=== PATIENT | female | born 1990 | race Caucasian/White ===

== ENCOUNTER 2017-11-17 19:08 | Inpatient (IN) | payer MEDICAID, OTHER ==
[~2017-11-17] VITALS: Ht 170.2 cm; Wt 78.8 kg
[~2017-11-17 19:08] MED LIST: ARIP15TA2 PO; LITH300C3 PO; OMEG-12 PO; PROP10TA73 PO; SIMV-259 PO
[2017-11-17 20:35] LABS: BASOPHILS % (AUTO) 0.7 % (0.0-2.0); EOSINOPHILS % (AUTO) 3.8 % (1.0-6.0); HEMATOCRIT 38.8 % (36-46); HEMOGLOBIN 13.2 g/dL (12.0-16.0); LYMPHOCYTES # (AUTO) 2.9 K/uL (1.0-4.8); LYMPHOCYTES % (AUTO) 21.5 % (22.0-44.0); MEAN CORPUSCULAR HEMOGLOBIN 30.5 pg (26.0-34.0); MEAN CORPUSCULAR HGB CONC 34.1 G/dL (31.0-37.0); MEAN CORPUSCULAR VOLUME 90 fL (80-100); MONOCYTES # (AUTO) 0.8 K/uL (0.1-1.0); MONOCYTES % (AUTO) 5.7 % (2.0-9.0); NEUTROPHILS # (AUTO) 9.1 K/uL (1.8-7.7); NEUTROPHILS % (AUTO) 68.3 % (40.0-70.0); PLATELET COUNT (AUTO) 312 K/uL (150-450); RED BLOOD CELL COUNT(AUTO) 4.34 MIL/uL (4.00-5.20); RED CELL DISTRIBUTION WIDTH 12.6 % (11.5-14.5)
[2017-11-17 20:41] LABS: ANION GAP 6 mmol/L (8-16); CARBON DIOXIDE 28 mmol/L (22-29); CHLORIDE 104 mmol/L (98-107); GLOMERULAR FILTR. RATE CALC 53 mL/min (>60); GLUCOSE,RANDOM 99 mg/dL (70-110); SODIUM SERUM 138 mmol/L (136-145); UREA NITROGEN, BLOOD 18 mg/dL (7-18)
[2017-11-17 20:51] LABS: AMPHET/METH SCREEN,URINE NEGATIVE (NEGATIVE); BARBITURATE SCREEN, URINE NEGATIVE (NEGATIVE); BENZODIAZEPINES SCREEN,URINE NEGATIVE (NEGATIVE); CANNABINOID SCREEN,URINE NEGATIVE (NEGATIVE); COCAINE SCREEN,URINE NEGATIVE (NEGATIVE); METHADONE SCREEN, URINE NEGATIVE (NEGATIVE); OPIATE SCREEN,URINE NEGATIVE (NEGATIVE)
[2017-11-17 20:52] LABS: PHENCYCLIDINE SCREEN,URINE NEGATIVE (NEGATIVE)
[2017-11-17 20:54] LABS: ALANINE AMINOTRANSFERASE 28 U/L (12-78); ALBUMIN 3.7 g/dL (3.4-5.0); ALKALINE PHOSPHATASE 76 U/L (46-116); ASPARTATE AMINOTRANSFERASE 21 U/L (15-37); BILIRUBIN,TOTAL 0.5 mg/dL (0.1-1.0); TOTAL PROTEIN, SERUM 7.8 g/dL (6.4-8.2)
[2017-11-17] MEDS ORDERED: LORazepam 1 MG TABLET PO ONE (22:45)
[2017-11-17] MEDS ORDERED: HALOPERIDOL 5 MG TABLET PO PRN (23:30)
[2017-11-18 02:24] LABS: APPEARANCE,URINE CLEAR (CLEAR); BILIRUBIN,URINE NEGATIVE (NEGATIVE); GLUCOSE, URINE (UA) NEGATIVE (NEGATIVE); OCCULT BLOOD,URINE LARGE (NEGATIVE); PROTEIN,URINE NEGATIVE (NEGATIVE)
[2017-11-18 02:25] LABS: KETONES,URINE NEGATIVE (NEGATIVE); LEUKOCYTE ESTERASE ,URINE MODERATE (NEGATIVE); NITRATE,URINE NEGATIVE (NEGATIVE); UROBILINOGEN,URINE 0.2 mg/dL (<=1.0)
[2017-11-18 03:17] LABS: BACTERIA,URINE Few /HPF (None Seen); SQUAMOUS EPITHELIAL CELL,UR Few /LPF (None Seen)
[2017-11-18 03:18] VITALS: BP 140/92
[2017-11-18 07:34] LABS: FREE T4 (FREE THYROXINE) 1.03 ng/dL (0.76-1.46); THYROID STIMULATING HORMONE 1.97 uIU/mL (0.36-3.74)
[2017-11-18 10:22] VITALS: BP 121/77
[2017-11-18] MEDS: SULFAMETHOX/TRIMETH DS 800-160 MG/TABLET PO SCH (16:54)
[2017-11-18 18:35] VITALS: BP 120/97
[2017-11-19 08:53] VITALS: BP 122/79
[2017-11-19] MEDS: SULFAMETHOX/TRIMETH DS 800-160 MG/TABLET PO SCH ×2 (10:38→17:38)
[2017-11-19 16:00] VITALS: BP 121/76
[2017-11-20 00:10] VITALS: BP 119/75
[2017-11-20] MEDS: ZOLPIDEM TARTRATE 10 MG TABLET PO PRN (00:25)
[2017-11-20 08:48] VITALS: BP 101/64
[2017-11-20] MEDS: SULFAMETHOX/TRIMETH DS 800-160 MG/TABLET PO SCH ×2 (08:57→16:33)
[2017-11-20 16:48] VITALS: BP 134/73
[2017-11-21 00:35] VITALS: BP 136/77
[2017-11-21] MEDS: ZOLPIDEM TARTRATE 10 MG TABLET PO PRN (00:35)
[2017-11-21] MEDS: LORazepam 2 MG TABLET PO PRN (02:53)
[2017-11-21 09:12] VITALS: BP 119/56
[2017-11-21] MEDS: SULFAMETHOX/TRIMETH DS 800-160 MG/TABLET PO SCH ×2 (10:06→16:30)
[2017-11-21 18:01] VITALS: BP 117/76
[2017-11-22 08:00] VITALS: BP 126/78
[2017-11-22] MEDS: SULFAMETHOX/TRIMETH DS 800-160 MG/TABLET PO SCH ×2 (08:04→16:33)
[2017-11-22 17:15] VITALS: BP 128/80
[2017-11-22] MEDS ORDERED: ACETAMINOPHEN 500 MG TABLET PO PRN (17:30)
[2017-11-22 19:51] VITALS: BP 118/81
[2017-11-22 21:20] VITALS: BP 118/81
[2017-11-22] MEDS: LORazepam 2 MG TABLET PO PRN (21:26)
[2017-11-23 01:45] VITALS: BP 121/78
[2017-11-23] MEDS: ARIPiprazole 15 MG TABLET PO SCH (09:19)
[2017-11-23] MEDS: LITHIUM CARBONATE 300 MG CAPSULE PO SCH ×2 (09:20→16:10)
[2017-11-23] MEDS: PROPRANOLOL HCL 10 MG TABLET PO SCH ×2 (09:20→16:10)
[2017-11-23] MEDS: SULFAMETHOX/TRIMETH DS 800-160 MG/TABLET PO SCH (09:20)
[2017-11-23 09:30] VITALS: BP 118/63
[2017-11-23 16:10] VITALS: BP 120/67
[2017-11-23] MEDS: ZOLPIDEM TARTRATE 10 MG TABLET PO PRN (23:17)
[2017-11-24] MEDS: PROPRANOLOL HCL 10 MG TABLET PO SCH (08:57)
[2017-11-24] MEDS: LITHIUM CARBONATE 300 MG CAPSULE PO SCH (08:57)
[2017-11-24] MEDS: ARIPiprazole 15 MG TABLET PO SCH (08:57)
[2017-11-24 09:00] VITALS: BP 100/75
== END 2017-11-24 15:05 | disposition home or self-care (01) | DRG 753 ==
LOC: EMS 19:09 → 3EI 11-18 01:04
PROVIDERS: ADMIT Psychiatry & Neurology Psychiatry; ATTEND Psychiatry & Neurology Psychiatry
DX: F31.9 Bipolar disorder, unspecified (principal); R45.851 Suicidal ideations; F25.9 Schizoaffective disorder, unspecified; F41.9 Anxiety disorder, unspecified; N39.0 Urinary tract infection, site not specified; Z88.8 Allergy status to other drugs, medicaments and biological substances; Z79.899 Other long term (current) drug therapy; Z83.3 Family history of diabetes mellitus
CPT/HCPCS: 84439; 84443; 87086; 99285; G0480

== ENCOUNTER 2019-03-28 16:04 | Inpatient (IN) | payer MEDICAID, OTHER ==
[~2019-03-28] VITALS: Ht 170.2 cm; Wt 83.5 kg
[~2019-03-28 16:04] MED LIST changes: -OMEG-12 PO; -SIMV-259 PO
[2019-03-28 17:38] LABS: EOSINOPHILS % (AUTO) 6.4 % (1.0-6.0); HEMOGLOBIN 12.7 g/dL (12.0-16.0); LYMPHOCYTES # (AUTO) 2.3 K/uL (1.0-4.8); LYMPHOCYTES % (AUTO) 26.9 % (22.0-44.0); MEAN CORPUSCULAR HEMOGLOBIN 28.3 pg (26.0-34.0); MEAN CORPUSCULAR HGB CONC 33.3 G/dL (31.0-37.0); MEAN CORPUSCULAR VOLUME 85 fL (80-100); MONOCYTES # (AUTO) 0.5 K/uL (0.1-1.0); MONOCYTES % (AUTO) 6.3 % (2.0-9.0); NEUTROPHILS # (AUTO) 5.1 K/uL (1.8-7.7); NEUTROPHILS % (AUTO) 59.4 % (40.0-70.0); PLATELET COUNT (AUTO) 321 K/uL (150-450); RED BLOOD CELL COUNT(AUTO) 4.48 MIL/uL (4.00-5.20); RED CELL DISTRIBUTION WIDTH 13.9 % (11.5-14.5)
[2019-03-28 17:54] LABS: ANION GAP 7 mmol/L (8-16); CALCIUM, TOTAL 9.5 mg/dL (8.8-10.5); CARBON DIOXIDE 26 mmol/L (22-29); CHLORIDE 106 mmol/L (98-107); CREATININE 1.04 mg/dL (0.60-1.30); GLOMERULAR FILTR. RATE CALC > 60 mL/min (>60); GLUCOSE,RANDOM 107 mg/dL (70-110); POTASSIUM 4.4 mmol/L (3.5-5.1); SODIUM SERUM 139 mmol/L (136-145); UREA NITROGEN, BLOOD 14 mg/dL (7-18)
[2019-03-28 18:00] LABS: ALANINE AMINOTRANSFERASE 25 U/L (12-78); ALBUMIN 3.9 g/dL (3.4-5.0); ALKALINE PHOSPHATASE 80 U/L (46-116); ASPARTATE AMINOTRANSFERASE 19 U/L (15-37); BILIRUBIN,TOTAL 0.5 mg/dL (0.1-1.0); TOTAL PROTEIN, SERUM 7.8 g/dL (6.4-8.2)
[2019-03-28 18:22] LABS: LITHIUM 0.54 mmol/L (0.60-1.20)
[2019-03-28 22:09] LABS: SALICYLATE < 2.8 mg/dL (2.8-20.0)
[2019-03-28 22:30] LABS: ACETAMINOPHEN < 2 mcg/mL (10-30)
[2019-03-28] MEDS ORDERED: LORazepam 2 MG TABLET PO PRN (23:00)
[2019-03-28] MEDS ORDERED: HALOPERIDOL 5 MG TABLET PO PRN (23:00)
[2019-03-29 00:20] LABS: AMPHET/METH SCREEN,URINE NEGATIVE (NEGATIVE); BARBITURATE SCREEN, URINE NEGATIVE (NEGATIVE); BENZODIAZEPINES SCREEN,URINE NEGATIVE (NEGATIVE); CANNABINOID SCREEN,URINE NEGATIVE (NEGATIVE); COCAINE SCREEN,URINE NEGATIVE (NEGATIVE); METHADONE SCREEN, URINE NEGATIVE (NEGATIVE); OPIATE SCREEN,URINE NEGATIVE (NEGATIVE)
[2019-03-29 00:26] LABS: PHENCYCLIDINE SCREEN,URINE NEGATIVE (NEGATIVE)
[2019-03-29 02:10] VITALS: BP 132/82
[2019-03-29] MEDS ORDERED: INFLUENZA VIRUS VACCINE QVS 2019-20 (3YR+)/PF 60 MCG/0.5 ML SYRINGE IM ONE (06:15)
[2019-03-29 08:16] VITALS: BP 106/59
[2019-03-29 08:18] LABS: CHOL/HDL RATIO 5.2 (3.9-5.7)
[2019-03-29] MEDS: PROPRANOLOL HCL 20 MG TABLET PO SCH ×2 (13:00→16:29)
[2019-03-29] MEDS ORDERED: BISACODYL 5 MG EC TABLET PO PRN (13:00)
[2019-03-29] MEDS: ARIPiprazole 10 MG TABLET PO SCH (13:33)
[2019-03-29 16:00] VITALS: BP 123/75
[2019-03-29] MEDS: LITHIUM CARBONATE 600 MG CAPSULE PO SCH (20:18)
[2019-03-29] MEDS: ZOLPIDEM TARTRATE 10 MG TABLET PO PRN (23:06)
[2019-03-30 06:24] VITALS: BP 114/65
[2019-03-30 08:05] VITALS: BP 101/52
[2019-03-30 08:30] VITALS: BP 112/68
[2019-03-30] MEDS: PROPRANOLOL HCL 20 MG TABLET PO SCH ×3 (08:35→16:45)
[2019-03-30] MEDS: ARIPiprazole 10 MG TABLET PO SCH (08:37)
[2019-03-30 13:05] VITALS: BP 110/72
[2019-03-30 16:06] VITALS: BP 112/81
[2019-03-30] MEDS: AMOX TR/POT CLAV 875 MG/125 MG TABLET PO SCH (16:45)
[2019-03-30] MEDS: LITHIUM CARBONATE 600 MG CAPSULE PO SCH (20:17)
[2019-03-31 06:55] VITALS: BP 101/65
[2019-03-31 08:21] VITALS: BP 100/61
[2019-03-31 08:45] VITALS: BP 124/75
[2019-03-31] MEDS: ARIPiprazole 10 MG TABLET PO SCH (08:46)
[2019-03-31] MEDS: AMOX TR/POT CLAV 875 MG/125 MG TABLET PO SCH ×2 (08:46→16:22)
[2019-03-31] MEDS: PROPRANOLOL HCL 20 MG TABLET PO SCH ×3 (08:46→16:22)
[2019-03-31 16:02] VITALS: BP 107/59
[2019-03-31] MEDS: LITHIUM CARBONATE 600 MG CAPSULE PO SCH (20:02)
[2019-04-01 06:33] VITALS: BP 115/70
[2019-04-01 08:03] VITALS: BP 117/66
[2019-04-01] MEDS: AMOX TR/POT CLAV 875 MG/125 MG TABLET PO SCH ×2 (08:29→17:17)
[2019-04-01] MEDS: PROPRANOLOL HCL 20 MG TABLET PO SCH ×3 (08:29→17:17)
[2019-04-01] MEDS: ARIPiprazole 10 MG TABLET PO SCH (08:29)
[2019-04-01 16:07] VITALS: BP 112/73
[2019-04-01] MEDS: LITHIUM CARBONATE 600 MG CAPSULE PO SCH (20:27)
[2019-04-02 06:21] VITALS: BP 104/65
[2019-04-02] MEDS: ARIPiprazole 10 MG TABLET PO SCH (08:06)
[2019-04-02] MEDS: AMOX TR/POT CLAV 875 MG/125 MG TABLET PO SCH ×2 (08:06→16:05)
[2019-04-02] MEDS: PROPRANOLOL HCL 20 MG TABLET PO SCH ×3 (08:06→16:05)
[2019-04-02 08:15] VITALS: BP 114/76
[2019-04-02 08:17] VITALS: BP 114/76
[2019-04-02 16:02] VITALS: BP 116/68
[2019-04-02] MEDS: LITHIUM CARBONATE 600 MG CAPSULE PO SCH (20:25)
[2019-04-02] MEDS: ZOLPIDEM TARTRATE 10 MG TABLET PO PRN (21:06)
[2019-04-03 06:28] VITALS: BP 113/78
[2019-04-03 08:10] VITALS: BP 121/74
[2019-04-03] MEDS: PROPRANOLOL HCL 20 MG TABLET PO SCH ×2 (08:13→12:11)
[2019-04-03] MEDS: ARIPiprazole 10 MG TABLET PO SCH (08:13)
[2019-04-03] MEDS: AMOX TR/POT CLAV 875 MG/125 MG TABLET PO SCH (08:13)
== END 2019-04-03 14:26 | disposition home or self-care (01) | DRG 750 ==
LOC: EMS 16:05 → B3A 23:30
PROVIDERS: ADMIT Psychiatry & Neurology Psychiatry; ATTEND Psychiatry & Neurology Psychiatry
DX: F25.9 Schizoaffective disorder, unspecified (principal); R45.851 Suicidal ideations; E78.5 Hyperlipidemia, unspecified; F31.9 Bipolar disorder, unspecified; K59.00 Constipation, unspecified; F41.9 Anxiety disorder, unspecified; Z83.3 Family history of diabetes mellitus; Z91.5 Personal history of self-harm; Z79.899 Other long term (current) drug therapy; Z88.8 Allergy status to other drugs, medicaments and biological substances
CPT/HCPCS: G0480; G0481

== ENCOUNTER 2020-08-22 16:34 | Inpatient (IN) | payer MEDICAID, OTHER ==
[~2020-08-22] VITALS: Ht 170.2 cm; Wt 85.5 kg
[2020-08-22 18:16] LABS: BASOPHILS % (AUTO) 1.1 % (0.0-2.0); EOSINOPHILS % (AUTO) 3.7 % (1.0-6.0); HEMATOCRIT 39.6 % (36-46); LYMPHOCYTES # (AUTO) 2.3 K/uL (1.0-4.8); LYMPHOCYTES % (AUTO) 24.9 % (22.0-44.0); MEAN CORPUSCULAR HEMOGLOBIN 28.4 pg (26.0-34.0); MEAN CORPUSCULAR HGB CONC 32.8 G/dL (31.0-37.0); MEAN CORPUSCULAR VOLUME 87 fL (80-100); MONOCYTES # (AUTO) 0.5 K/uL (0.1-1.0); MONOCYTES % (AUTO) 5.1 % (2.0-9.0); NEUTROPHILS % (AUTO) 65.2 % (40.0-70.0); PLATELET COUNT (AUTO) 340 K/uL (150-450); RED BLOOD CELL COUNT(AUTO) 4.58 MIL/uL (4.00-5.20); RED CELL DISTRIBUTION WIDTH 14.4 % (11.5-14.5)
[2020-08-22 18:28] LABS: LITHIUM 0.57 mmol/L (0.60-1.20)
[2020-08-22 18:29] LABS: ANION GAP 11 mmol/L (8-16); CALCIUM, TOTAL 9.4 mg/dL (8.8-10.5); CARBON DIOXIDE 23 mmol/L (22-29); CHLORIDE 103 mmol/L (98-107); CREATININE 1.12 mg/dL (0.60-1.30); GLOMERULAR FILTR. RATE CALC 57 mL/min (>60); GLUCOSE,RANDOM 101 mg/dL (70-110); POTASSIUM 3.9 mmol/L (3.5-5.1); SODIUM SERUM 137 mmol/L (136-145); UREA NITROGEN, BLOOD 15 mg/dL (7-18)
[2020-08-22 18:42] LABS: ALANINE AMINOTRANSFERASE 36 U/L (12-78); ALKALINE PHOSPHATASE 70 U/L (46-116); ASPARTATE AMINOTRANSFERASE 23 U/L (15-37); BILIRUBIN,TOTAL 0.7 mg/dL (0.1-1.0); HCG,QUANTITATIVE < 1 mIU/mL (0-6); TOTAL PROTEIN, SERUM 8.1 g/dL (6.4-8.2)
[2020-08-22 19:38] LABS: COVID AG,FIA SOURCE NASOPHARYNGEAL
[2020-08-22] MEDS ORDERED: ZOLPIDEM TARTRATE 10 MG TABLET PO PRN (19:45)
[2020-08-22] MEDS ORDERED: HALOPERIDOL 5 MG TABLET PO PRN (19:45)
[2020-08-23 00:15] VITALS: BP 133/94
[2020-08-23] MEDS: LORazepam 2 MG TABLET PO PRN (00:22)
[2020-08-23 05:54] VITALS: BP 102/63
[2020-08-23 08:57] LABS: CHOL/HDL RATIO 4.9 (3.9-5.7)
[2020-08-23] MEDS ORDERED: LITH600C5 PO (11:49)
[2020-08-23] MEDS ORDERED: PROP20TA18 PO (11:49)
[2020-08-23] MEDS ORDERED: ARIP10TA8 PO (11:49)
[2020-08-23] MEDS: PROPRANOLOL HCL 20 MG TABLET PO SCH ×2 (14:31→18:03)
[2020-08-23] MEDS: LITHIUM CARBONATE 600 MG CAPSULE PO SCH (20:25)
[2020-08-23 20:31] VITALS: BP 120/88
[2020-08-24 09:36] VITALS: BP 116/74
[2020-08-24] MEDS: PROPRANOLOL HCL 20 MG TABLET PO SCH ×3 (10:37→16:25)
[2020-08-24] MEDS: ARIPiprazole 10 MG TABLET PO SCH (10:38)
[2020-08-24 16:00] VITALS: BP 121/75
[2020-08-24] MEDS: LITHIUM CARBONATE 600 MG CAPSULE PO SCH (20:22)
[2020-08-25 08:00] VITALS: BP 122/76
[2020-08-25] MEDS: ARIPiprazole 10 MG TABLET PO SCH (09:29)
[2020-08-25] MEDS: PROPRANOLOL HCL 20 MG TABLET PO SCH ×3 (09:30→17:03)
[2020-08-25 16:12] VITALS: BP 108/84
[2020-08-25 16:33] VITALS: BP 120/69
[2020-08-25] MEDS: LITHIUM CARBONATE 600 MG CAPSULE PO SCH (20:20)
[2020-08-25] MEDS: LORazepam 2 MG TABLET PO PRN (22:14)
[2020-08-26] MEDS: PROPRANOLOL HCL 20 MG TABLET PO SCH ×3 (09:31→16:31)
[2020-08-26] MEDS: ARIPiprazole 10 MG TABLET PO SCH (09:31)
[2020-08-26 09:50] VITALS: BP 113/72
[2020-08-26 17:55] VITALS: BP 123/75
[2020-08-26] MEDS: LITHIUM CARBONATE 600 MG CAPSULE PO SCH (20:41)
[2020-08-27 08:00] VITALS: BP 98/64
[2020-08-27] MEDS: ARIPiprazole 10 MG TABLET PO SCH (08:13)
[2020-08-27] MEDS: PROPRANOLOL HCL 20 MG TABLET PO SCH ×3 (08:13→16:52)
[2020-08-27 16:00] VITALS: BP 106/70
[2020-08-27] MEDS: LITHIUM CARBONATE 600 MG CAPSULE PO SCH (20:34)
[2020-08-28] MEDS: PROPRANOLOL HCL 20 MG TABLET PO SCH ×2 (08:10→13:03)
[2020-08-28] MEDS: ARIPiprazole 10 MG TABLET PO SCH (08:36)
[2020-08-28 08:48] VITALS: BP 120/77
== END 2020-08-28 14:10 | disposition home or self-care (01) | DRG 753 ==
LOC: EMS 16:34 → 3EI 21:50
PROVIDERS: ADMIT Psychiatry & Neurology Psychiatry; ATTEND Psychiatry & Neurology Psychiatry
DX: F31.9 Bipolar disorder, unspecified (principal); R45.851 Suicidal ideations; E78.5 Hyperlipidemia, unspecified; Z20.822 Contact with and (suspected) exposure to COVID-19; I10 Essential (primary) hypertension; F41.9 Anxiety disorder, unspecified; Z83.3 Family history of diabetes mellitus; Z82.49 Family history of ischemic heart disease and other diseases of the circulatory system
CPT/HCPCS: 87426; 99285; G0480

== ENCOUNTER 2020-12-19 16:01 | Inpatient (IN) | payer MEDICAID, OTHER ==
[~2020-12-19] VITALS: Ht 170.2 cm; Wt 86.0 kg
[~2020-12-19 16:01] MED LIST changes: +ARIP10TA38 PO; -ARIP15TA2 PO; -LITH300C3 PO; +LITH600C5 PO; -PROP10TA73 PO; +PROP20TA18 PO
[2020-12-19] MEDS ORDERED: LORazepam 2 MG TABLET PO ONE (16:45)
[2020-12-19] MEDS ORDERED: ACETAMINOPHEN 325 MG TABLET PO PRN (16:45)
[2020-12-19 16:52] LABS: COVID AG,FIA SOURCE NASOPHARYNGEAL
[2020-12-19 17:00] LABS: BASOPHILS % (AUTO) 0.8 % (0.0-2.0); HEMATOCRIT 39.8 % (36-46); HEMOGLOBIN 12.8 g/dL (12.0-16.0); LYMPHOCYTES # (AUTO) 2.3 K/uL (1.0-4.8); MEAN CORPUSCULAR HEMOGLOBIN 27.7 pg (26.0-34.0); MEAN CORPUSCULAR HGB CONC 32.3 G/dL (31.0-37.0); MEAN CORPUSCULAR VOLUME 86 fL (80-100); MONOCYTES # (AUTO) 0.5 K/uL (0.1-1.0); MONOCYTES % (AUTO) 5.1 % (2.0-9.0); NEUTROPHILS # (AUTO) 6.8 K/uL (1.8-7.7); NEUTROPHILS % (AUTO) 67.1 % (40.0-70.0); PLATELET COUNT (AUTO) 320 K/uL (150-450); RED BLOOD CELL COUNT(AUTO) 4.63 MIL/uL (4.00-5.20)
[2020-12-19] MEDS ORDERED: ARIPiprazole 15 MG TABLET PO ONE (17:00)
[2020-12-19 17:05] LABS: AMPHET/METH SCREEN,URINE NEGATIVE (NEGATIVE); BARBITURATE SCREEN, URINE NEGATIVE (NEGATIVE); BENZODIAZEPINES SCREEN,URINE NEGATIVE (NEGATIVE); CANNABINOID SCREEN,URINE NEGATIVE (NEGATIVE); COCAINE SCREEN,URINE NEGATIVE (NEGATIVE); METHADONE SCREEN, URINE NEGATIVE (NEGATIVE); OPIATE SCREEN,URINE NEGATIVE (NEGATIVE); PHENCYCLIDINE SCREEN,URINE NEGATIVE (NEGATIVE)
[2020-12-19 17:16] LABS: ANION GAP 10 mmol/L (8-16); CALCIUM, TOTAL 9.3 mg/dL (8.8-10.5); CARBON DIOXIDE 25 mmol/L (22-29); CHLORIDE 101 mmol/L (98-107); CREATININE 1.04 mg/dL (0.60-1.30); GLOMERULAR FILTR. RATE CALC > 60 mL/min (>60); GLUCOSE,RANDOM 100 mg/dL (70-110); POTASSIUM 3.9 mmol/L (3.5-5.1); SODIUM SERUM 136 mmol/L (136-145); UREA NITROGEN, BLOOD 13 mg/dL (7-18)
[2020-12-19 17:17] LABS: SALICYLATE < 2.8 mg/dL (2.8-20.0)
[2020-12-19 17:30] LABS: ALANINE AMINOTRANSFERASE 43 U/L (12-78); ALBUMIN 3.7 g/dL (3.4-5.0); ALKALINE PHOSPHATASE 83 U/L (46-116); ASPARTATE AMINOTRANSFERASE 31 U/L (15-37); BILIRUBIN,TOTAL 0.6 mg/dL (0.1-1.0); CHOL/HDL RATIO 4.5 (3.9-5.7); CHOLESTEROL 245 mg/dL (131-200); FREE T4 (FREE THYROXINE) 1.11 ng/dL (0.76-1.46); HDL CHOLESTEROL 54 mg/dL (40-60); LDL CHOL (CALC.) 159 mg/dL (0-130); THYROID STIMULATING HORMONE 1.69 uIU/mL (0.36-3.74); TOTAL PROTEIN, SERUM 7.8 g/dL (6.4-8.2); TRIGLYCERIDES 159 mg/dL (15-150)
[2020-12-19 17:31] LABS: ACETAMINOPHEN < 2 mcg/mL (10-30)
[2020-12-19 17:47] LABS: HCG,QUANTITATIVE < 1 mIU/mL (0-6)
[2020-12-19] MEDS ORDERED: OLANZapine 5 MG RAPDIS TABLET PO PRN (20:00)
[2020-12-19] MEDS ORDERED: LORazepam 2 MG TABLET PO PRN (20:00)
[2020-12-19] MEDS ORDERED: ZOLPIDEM TARTRATE 10 MG TABLET PO PRN (20:00)
[2020-12-20 00:35] VITALS: BP 129/78
[2020-12-20] MEDS ORDERED: PNEUMOCOCCAL VACCINE POLYVALENT 0.5 ML VIAL [PPSV23] IM. ONE (01:15)
[2020-12-20] MEDS ORDERED: MAG HYDROX/AL HYDROX/SIMETH ES 30 ML SUSPENSION UDCUP PO PRN (08:00)
[2020-12-20] MEDS ORDERED: PETROLATUM,WHITE 28 GM JELLY TP PRN (08:00)
[2020-12-20] MEDS ORDERED: LOPERAMIDE HCL 2 MG CAPSULE PO PRN (08:00)
[2020-12-20] MEDS ORDERED: ALBUTEROL SULFATE HFA 90 MCG/PUFF 8 GM INHALER IH PRN (08:00)
[2020-12-20] MEDS ORDERED: ONDANSETRON HCL 4 MG TABLET PO PRN (08:00)
[2020-12-20] MEDS ORDERED: ACETAMINOPHEN 325 MG TABLET PO PRN (08:00)
[2020-12-20] MEDS ORDERED: DOCUSATE SODIUM 100 MG CAPSULE PO PRN (08:00)
[2020-12-20] MEDS ORDERED: BACITRACIN 28 GM OINTMENT TP PRN (08:00)
[2020-12-20] MEDS ORDERED: IBUPROFEN 600 MG TABLET PO PRN (08:00)
[2020-12-20] MEDS ORDERED: OMEPRAZOLE 20 MG CAPSULE PO PRN (08:00)
[2020-12-20] MEDS ORDERED: CloNIDine HCL 0.1 MG TABLET PO PRN (08:00)
[2020-12-20] MEDS ORDERED: MAGNESIUM HYDROXIDE SUSPENSION 30 ML UDCUP PO PRN (08:00)
[2020-12-20] MEDS ORDERED: BENZOCAINE/MENTHOL LOZENGE PO PRN (08:00)
[2020-12-20 09:45] LABS: CHOL/HDL RATIO 4.6 (3.9-5.7)
[2020-12-20] MEDS: OMEGA-3/DHA/EPA/FISH OIL 1,000 MG CAPSULE PO SCH (09:59)
[2020-12-20 16:05] VITALS: BP 128/88
[2020-12-21 04:50] VITALS: BP 114/68
[2020-12-21] MEDS: ARIPiprazole 10 MG TABLET PO SCH (08:36)
[2020-12-21] MEDS: OMEGA-3/DHA/EPA/FISH OIL 1,000 MG CAPSULE PO SCH (08:36)
[2020-12-21] MEDS: PROPRANOLOL HCL 10 MG TABLET PO SCH ×3 (08:36→16:09)
[2020-12-21 09:19] VITALS: BP 134/78
[2020-12-21 16:10] VITALS: BP 123/74
[2020-12-21] MEDS: LITHIUM CARBONATE 600 MG CAPSULE PO SCH (20:49)
[2020-12-22 00:03] VITALS: BP 121/79
[2020-12-22 08:09] VITALS: BP 126/74
[2020-12-22] MEDS: ARIPiprazole 10 MG TABLET PO SCH (08:45)
[2020-12-22] MEDS: OMEGA-3/DHA/EPA/FISH OIL 1,000 MG CAPSULE PO SCH (08:45)
[2020-12-22] MEDS: PROPRANOLOL HCL 10 MG TABLET PO SCH ×3 (08:45→16:22)
[2020-12-22 09:37] VITALS: BP 116/74
[2020-12-22 16:02] VITALS: BP 125/74
[2020-12-22] MEDS: LITHIUM CARBONATE 600 MG CAPSULE PO SCH (20:15)
[2020-12-23 02:27] VITALS: BP 122/73
[2020-12-23 08:10] VITALS: BP 124/79
[2020-12-23] MEDS: PROPRANOLOL HCL 10 MG TABLET PO SCH ×2 (08:15→12:41)
[2020-12-23] MEDS: ARIPiprazole 10 MG TABLET PO SCH (08:15)
[2020-12-23] MEDS: OMEGA-3/DHA/EPA/FISH OIL 1,000 MG CAPSULE PO SCH (08:15)
[2020-12-23] MEDS ORDERED: LORazepam 1 MG TABLET ONE (10:36)
== END 2020-12-23 13:20 | disposition home or self-care (01) | DRG 750 ==
LOC: EMS 16:01 → B3A 23:29 → B2S 23:29 → UNDOADMIN 23:29 → B3A 12-20 00:55
PROVIDERS: ADMIT Psychiatry & Neurology Psychiatry; ATTEND Psychiatry & Neurology Psychiatry
DX: F25.0 Schizoaffective disorder, bipolar type (principal); R45.851 Suicidal ideations; E78.5 Hyperlipidemia, unspecified; F31.9 Bipolar disorder, unspecified; Z20.822 Contact with and (suspected) exposure to COVID-19; F41.9 Anxiety disorder, unspecified; G47.00 Insomnia, unspecified; I10 Essential (primary) hypertension; M54.5 Low back pain; K59.00 Constipation, unspecified; Z28.82 Immunization not carried out because of caregiver refusal; Z88.0 Allergy status to penicillin; Z88.8 Allergy status to other drugs, medicaments and biological substances; Z79.899 Other long term (current) drug therapy
CPT/HCPCS: 80053; 80061; 84439; 84443; 84702; 85025; 99285; G0480; G0481

== ENCOUNTER 2021-03-25 13:59 | Emergency (ER) | payer MEDICAID, OTHER ==
[~2021-03-25] VITALS: Ht 170.2 cm; Wt 84.1 kg
[~2021-03-25 13:59] MED LIST changes: -ARIP10TA38 PO
[2021-03-25] MEDS ORDERED: BACLOFEN 10 MG TABLET PO ONE (15:45)
[2021-03-25] MEDS ORDERED: IBUPROFEN 600 MG TABLET PO ONE (15:45)
[2021-03-25 16:01] VITALS: BP 145/88
== END 2021-03-25 16:06 | disposition home or self-care (01) ==
LOC: EMS 14:04
DX: M62.838 Other muscle spasm (principal); F25.0 Schizoaffective disorder, bipolar type; F41.9 Anxiety disorder, unspecified; I10 Essential (primary) hypertension; F31.9 Bipolar disorder, unspecified; Z88.0 Allergy status to penicillin; Z88.5 Allergy status to narcotic agent; Z79.899 Other long term (current) drug therapy
CPT/HCPCS: 93005; 99283

== ENCOUNTER 2021-12-23 14:29 | Inpatient (IN) | payer MEDICAID, OTHER ==
[~2021-12-23] VITALS: Ht 172.7 cm; Wt 82.8 kg
[2021-12-23 16:30] LABS: BASOPHILS % (AUTO) 0.8 % (0.0-2.0); EOSINOPHILS % (AUTO) 2.7 % (1.0-6.0); HEMATOCRIT 40.2 % (36-46); HEMOGLOBIN 13.1 g/dL (12.0-16.0); LYMPHOCYTES # (AUTO) 2.1 K/uL (1.0-4.8); LYMPHOCYTES % (AUTO) 25.4 % (22.0-44.0); MEAN CORPUSCULAR HGB CONC 32.7 G/dL (31.0-37.0); MEAN CORPUSCULAR VOLUME 86 fL (80-100); MONOCYTES # (AUTO) 0.4 K/uL (0.1-1.0); MONOCYTES % (AUTO) 4.4 % (2.0-9.0); NEUTROPHILS # (AUTO) 5.6 K/uL (1.8-7.7); NEUTROPHILS % (AUTO) 66.7 % (40.0-70.0); PLATELET COUNT (AUTO) 332 K/uL (150-450); RED CELL DISTRIBUTION WIDTH 14.3 % (11.5-14.5)
[2021-12-23 16:39] LABS: ANION GAP 9 mmol/L (8-16); CARBON DIOXIDE 26 mmol/L (22-29); CHLORIDE 105 mmol/L (98-107); CREATININE 1.18 mg/dL (0.60-1.30); GLOMERULAR FILTR. RATE CALC 53 mL/min (>60); GLUCOSE,RANDOM 100 mg/dL (70-110); POTASSIUM 4.1 mmol/L (3.5-5.1); SODIUM SERUM 140 mmol/L (136-145); UREA NITROGEN, BLOOD 13 mg/dL (7-18)
[2021-12-23 16:45] LABS: ALANINE AMINOTRANSFERASE 25 U/L (12-78); ALBUMIN 3.9 g/dL (3.4-5.0); ALKALINE PHOSPHATASE 89 U/L (46-116); ASPARTATE AMINOTRANSFERASE 20 U/L (15-37); BILIRUBIN,TOTAL 0.6 mg/dL (0.1-1.0); TOTAL PROTEIN, SERUM 8.1 g/dL (6.4-8.2)
[2021-12-23 18:45] LABS: COVID AG,FIA SOURCE NASAL SWAB
[2021-12-23] MEDS ORDERED: LORazepam 2 MG TABLET PO PRN (21:00)
[2021-12-23] MEDS ORDERED: ZOLPIDEM TARTRATE 10 MG TABLET PO PRN (21:00)
[2021-12-23] MEDS ORDERED: HALOPERIDOL 5 MG TABLET PO PRN (21:00)
[2021-12-23 21:30] VITALS: BP 146/85
[2021-12-23] MEDS ORDERED: PNEUMOCOCCAL VACCINE POLYVALENT 0.5 ML VIAL [PPSV23] IM. ONE (22:30)
[2021-12-24] MEDS ORDERED: ACETAMINOPHEN 325 MG TABLET PO PRN (07:30)
[2021-12-24] MEDS ORDERED: MAGNESIUM HYDROXIDE SUSPENSION 30 ML UDCUP PO PRN (07:30)
[2021-12-24] MEDS ORDERED: IBUPROFEN 600 MG TABLET PO PRN (07:30)
[2021-12-24] MEDS ORDERED: BACITRACIN 28 GM OINTMENT TP PRN (07:30)
[2021-12-24] MEDS ORDERED: LOPERAMIDE HCL 2 MG CAPSULE PO PRN (07:30)
[2021-12-24] MEDS ORDERED: PETROLATUM,WHITE 28 GM JELLY TP PRN (07:30)
[2021-12-24] MEDS ORDERED: OMEPRAZOLE 20 MG CAPSULE PO PRN (07:30)
[2021-12-24] MEDS ORDERED: CloNIDine HCL 0.1 MG TABLET PO PRN (07:30)
[2021-12-24] MEDS ORDERED: ALBUTEROL SULFATE HFA 90 MCG/PUFF 8 GM INHALER IH PRN (07:30)
[2021-12-24] MEDS ORDERED: MAG HYDROX/AL HYDROX/SIMETH ES 30 ML SUSPENSION UDCUP PO PRN (07:30)
[2021-12-24] MEDS ORDERED: ONDANSETRON HCL 4 MG TABLET PO PRN (07:30)
[2021-12-24] MEDS ORDERED: BENZOCAINE/MENTHOL LOZENGE PO PRN (07:30)
[2021-12-24] MEDS ORDERED: DOCUSATE SODIUM 100 MG CAPSULE PO PRN (07:30)
[2021-12-24 08:05] VITALS: BP 111/69
[2021-12-24 09:06] VITALS: BP 111/69
[2021-12-24 16:20] VITALS: BP 121/82
[2021-12-24] MEDS: PROPRANOLOL HCL 20 MG TABLET PO SCH (16:20)
[2021-12-24] MEDS: LITHIUM CARBONATE 600 MG CAPSULE PO SCH (20:46)
[2021-12-25] MEDS: PROPRANOLOL HCL 20 MG TABLET PO SCH ×3 (08:54→16:07)
[2021-12-25 09:00] VITALS: BP 106/61
[2021-12-25 13:02] LABS: AMPHET/METH SCREEN,URINE NEGATIVE (NEGATIVE); APPEARANCE,URINE CLEAR (CLEAR); BARBITURATE SCREEN, URINE NEGATIVE (NEGATIVE); BENZODIAZEPINES SCREEN,URINE NEGATIVE (NEGATIVE); BILIRUBIN,URINE NEGATIVE (NEGATIVE); CANNABINOID SCREEN,URINE NEGATIVE (NEGATIVE); COCAINE SCREEN,URINE NEGATIVE (NEGATIVE); GLUCOSE, URINE (UA) NEGATIVE (NEGATIVE); KETONES,URINE NEGATIVE (NEGATIVE); LEUKOCYTE ESTERASE ,URINE NEGATIVE (NEGATIVE); METHADONE SCREEN, URINE NEGATIVE (NEGATIVE); NITRATE,URINE NEGATIVE (NEGATIVE); OCCULT BLOOD,URINE NEGATIVE (NEGATIVE); OPIATE SCREEN,URINE NEGATIVE (NEGATIVE); PH,URINE 6.5 (5.0-8.0); PROTEIN,URINE NEGATIVE (NEGATIVE); SPECIFIC GRAVITIY, URINE 1.003 (1.003-1.030); UROBILINOGEN,URINE <=1.0 mg/dL (<=1.0)
[2021-12-25 13:05] LABS: PHENCYCLIDINE SCREEN,URINE NEGATIVE (NEGATIVE)
[2021-12-25 17:16] VITALS: BP 137/74
[2021-12-25] MEDS: LITHIUM CARBONATE 600 MG CAPSULE PO SCH (20:50)
[2021-12-26] MEDS: PROPRANOLOL HCL 20 MG TABLET PO SCH ×3 (08:44→16:09)
[2021-12-26 09:00] VITALS: BP 116/72
[2021-12-26 17:27] VITALS: BP 111/67
[2021-12-26] MEDS: LITHIUM CARBONATE 600 MG CAPSULE PO SCH (20:52)
[2021-12-26] MEDS ORDERED: LITH600C5 PO (22:21)
[2021-12-26] MEDS ORDERED: PROP20TA96 PO (22:21)
[2021-12-27 00:16] VITALS: BP 136/86
[2021-12-27 08:36] VITALS: BP 146/98
[2021-12-27] MEDS: PROPRANOLOL HCL 20 MG TABLET PO SCH (09:58)
== END 2021-12-27 12:00 | disposition home or self-care (01) | DRG 753 ==
LOC: EMS 14:32 → 3EI 20:57
PROVIDERS: ADMIT Psychiatry & Neurology Psychiatry; ATTEND Psychiatry & Neurology Psychiatry
DX: F31.9 Bipolar disorder, unspecified (principal); F25.9 Schizoaffective disorder, unspecified; R45.851 Suicidal ideations; E78.5 Hyperlipidemia, unspecified; F43.10 Post-traumatic stress disorder, unspecified; G47.00 Insomnia, unspecified; I10 Essential (primary) hypertension; K59.00 Constipation, unspecified; M54.50 Low back pain, unspecified; Z20.822 Contact with and (suspected) exposure to COVID-19; Z88.0 Allergy status to penicillin; Z88.8 Allergy status to other drugs, medicaments and biological substances; Z28.9 Immunization not carried out for unspecified reason
CPT/HCPCS: 80053; 80307; 81003; 84703; 85025; 99285; G0480

== ENCOUNTER 2022-05-04 16:46 | Emergency (ER) | payer MEDICAID, OTHER ==
[~2022-05-04] VITALS: Ht 170.2 cm; Wt 81.0 kg
[~2022-05-04 16:46] MED LIST changes: +PROP20TA96 PO
[2022-05-04] MEDS ORDERED: SODIUM CHLORIDE 0.9% 1,000 ML IV ONE (21:15)
[2022-05-04 21:20] LABS: EOSINOPHILS % (AUTO) 4.5 % (1.0-6.0); HEMATOCRIT 37.8 % (36-46); HEMOGLOBIN 12.4 g/dL (12.0-16.0); LYMPHOCYTES # (AUTO) 3.3 K/uL (1.0-4.8); LYMPHOCYTES % (AUTO) 31.3 % (22.0-44.0); MEAN CORPUSCULAR HEMOGLOBIN 28.9 pg (26.0-34.0); MEAN CORPUSCULAR HGB CONC 32.7 G/dL (31.0-37.0); MEAN CORPUSCULAR VOLUME 88 fL (80-100); MONOCYTES # (AUTO) 0.5 K/uL (0.1-1.0); MONOCYTES % (AUTO) 4.9 % (2.0-9.0); NEUTROPHILS # (AUTO) 6.2 K/uL (1.8-7.7); NEUTROPHILS % (AUTO) 58.3 % (40.0-70.0); PLATELET COUNT (AUTO) 332 K/uL (150-450); RED BLOOD CELL COUNT(AUTO) 4.29 MIL/uL (4.00-5.20); RED CELL DISTRIBUTION WIDTH 13.9 % (11.5-14.5)
[2022-05-04 21:28] LABS: ANION GAP 11 mmol/L (8-16); CALCIUM, TOTAL 9.4 mg/dL (8.8-10.5); CARBON DIOXIDE 24 mmol/L (22-29); CHLORIDE 105 mmol/L (98-107); CREATININE 1.04 mg/dL (0.60-1.30); GLOMERULAR FILTR. RATE CALC > 60 mL/min (>60); GLUCOSE,RANDOM 107 mg/dL (70-110); SODIUM SERUM 140 mmol/L (136-145); UREA NITROGEN, BLOOD 17 mg/dL (7-18)
[2022-05-04 21:34] LABS: ALANINE AMINOTRANSFERASE 26 U/L (12-78); ALBUMIN 3.4 g/dL (3.4-5.0); ALKALINE PHOSPHATASE 72 U/L (46-116); ASPARTATE AMINOTRANSFERASE 13 U/L (15-37); BILIRUBIN,TOTAL 0.3 mg/dL (0.1-1.0); TOTAL PROTEIN, SERUM 7.4 g/dL (6.4-8.2)
[2022-05-05] VITALS: BP 124/78
== END 2022-05-05 00:35 | disposition home or self-care (01) ==
LOC: EMS 16:46
DX: R25.2 Cramp and spasm (principal); F31.9 Bipolar disorder, unspecified; F20.9 Schizophrenia, unspecified; Z88.0 Allergy status to penicillin; Z88.8 Allergy status to other drugs, medicaments and biological substances
CPT/HCPCS: 80053; 80178; 85025; 99283

== ENCOUNTER 2022-08-11 12:32 | Emergency (ER) | payer OTHER ==
[~2022-08-11] VITALS: Ht 170.2 cm; Wt 81.8 kg
[2022-08-11 12:52] VITALS: BP 152/94
[2022-08-11 15:23] LABS: BASOPHILS % (AUTO) 0.9 % (0.0-2.0); EOSINOPHILS % (AUTO) 5.9 % (1.0-6.0); HEMATOCRIT 36.9 % (36-46); HEMOGLOBIN 12.1 g/dL (12.0-16.0); LYMPHOCYTES # (AUTO) 2.2 K/uL (1.0-4.8); LYMPHOCYTES % (AUTO) 26.6 % (22.0-44.0); MEAN CORPUSCULAR HGB CONC 32.8 G/dL (31.0-37.0); MEAN CORPUSCULAR VOLUME 85 fL (80-100); MONOCYTES # (AUTO) 0.4 K/uL (0.1-1.0); MONOCYTES % (AUTO) 5.2 % (2.0-9.0); NEUTROPHILS % (AUTO) 61.4 % (40.0-70.0); PLATELET COUNT (AUTO) 355 K/uL (150-450); RED BLOOD CELL COUNT(AUTO) 4.32 MIL/uL (4.00-5.20); RED CELL DISTRIBUTION WIDTH 13.6 % (11.5-14.5)
[2022-08-11 15:39] LABS: ANION GAP 11 mmol/L (8-16); CALCIUM, TOTAL 9.7 mg/dL (8.8-10.5); CARBON DIOXIDE 25 mmol/L (22-29); CHLORIDE 103 mmol/L (98-107); CREATININE 1.13 mg/dL (0.60-1.30); GLOMERULAR FILTR. RATE CALC 55 mL/min (>60); GLUCOSE,RANDOM 100 mg/dL (70-110); SODIUM SERUM 139 mmol/L (136-145); UREA NITROGEN, BLOOD 12 mg/dL (7-18)
[2022-08-11 15:43] LABS: ALANINE AMINOTRANSFERASE 29 U/L (12-78); ALBUMIN 3.8 g/dL (3.4-5.0); ALKALINE PHOSPHATASE 83 U/L (46-116); ASPARTATE AMINOTRANSFERASE 23 U/L (15-37); BILIRUBIN,TOTAL 0.8 mg/dL (0.1-1.0); HCG,QUANTITATIVE < 1 mIU/mL (0-6); TOTAL PROTEIN, SERUM 8.1 g/dL (6.4-8.2)
[2022-08-11] MEDS ORDERED: SODIUM CHLORIDE 0.9% 1,000 ML IV ONE (20:45)
[2022-08-11 21:32] LABS: APPEARANCE,URINE CLEAR (CLEAR); BILIRUBIN,URINE NEGATIVE (NEGATIVE); GLUCOSE, URINE (UA) NEGATIVE (NEGATIVE); KETONES,URINE NEGATIVE (NEGATIVE); LEUKOCYTE ESTERASE ,URINE TRACE (NEGATIVE); NITRATE,URINE NEGATIVE (NEGATIVE); OCCULT BLOOD,URINE LARGE (NEGATIVE); PH,URINE 6.5 (5.0-8.0); PROTEIN,URINE NEGATIVE (NEGATIVE); SPECIFIC GRAVITIY, URINE 1.009 (1.003-1.030); UROBILINOGEN,URINE <=1.0 mg/dL (<=1.0)
[2022-08-11 21:43] LABS: COVID AG,FIA SOURCE NASAL SWAB
[2022-08-11 22:02] LABS: INFLUENZA TYPE A NEGATIVE FOR TYPE A (NEGATIVE); INFLUENZA TYPE B NEGATIVE FOR TYPE B (NEGATIVE)
[2022-08-11 22:02] LABS: RBC,URINE >100 /HPF (0-2)
[2022-08-11 22:03] LABS: BACTERIA,URINE None Seen /HPF (None Seen)
== END 2022-08-11 22:00 | disposition home or self-care (01) ==
LOC: EMS 12:56
DX: N93.8 Other specified abnormal uterine and vaginal bleeding (principal); N83.202 Unspecified ovarian cyst, left side; F31.9 Bipolar disorder, unspecified; F20.9 Schizophrenia, unspecified; Z88.0 Allergy status to penicillin; Z88.8 Allergy status to other drugs, medicaments and biological substances; Z20.822 Contact with and (suspected) exposure to COVID-19
CPT/HCPCS: 99284; 96360; 76830; 76856; 87426; 80053; 81001; 84702; 85025; 87804; 86850; 86900; 86901; 36415; J7030

== ENCOUNTER 2023-07-17 05:34 | Emergency (ER) | payer MEDICAID, OTHER ==
[~2023-07-17] VITALS: Ht 170.2 cm; Wt 84.1 kg
[2023-07-17 05:39] VITALS: TEMP 98.2
[2023-07-17 07:06] LABS: COVID AG,FIA SOURCE NASAL SWAB
[2023-07-17 07:32] LABS: INFLUENZA TYPE A NEGATIVE FOR TYPE A (NEGATIVE); INFLUENZA TYPE B NEGATIVE FOR TYPE B (NEGATIVE); SARS-COV2 (COVID) ANTIGEN,FIA Negative (Negative)
[2023-07-17 07:33] LABS: EOSINOPHILS % (AUTO) 4.5 % (1.0-6.0); HEMATOCRIT 35.2 % (36-46); HEMOGLOBIN 11.4 g/dL (12.0-16.0); LYMPHOCYTES # (AUTO) 2.4 K/uL (1.0-4.8); LYMPHOCYTES % (AUTO) 22.4 % (22.0-44.0); MEAN CORPUSCULAR HEMOGLOBIN 26.5 pg (26.0-34.0); MEAN CORPUSCULAR HGB CONC 32.5 G/dL (31.0-37.0); MEAN CORPUSCULAR VOLUME 81 fL (80-100); MONOCYTES # (AUTO) 0.7 K/uL (0.1-1.0); MONOCYTES % (AUTO) 6.5 % (2.0-9.0); NEUTROPHILS # (AUTO) 7.1 K/uL (1.8-7.7); NEUTROPHILS % (AUTO) 65.6 % (40.0-70.0); PLATELET COUNT (AUTO) 345 K/uL (150-450); RED BLOOD CELL COUNT(AUTO) 4.32 MIL/uL (4.00-5.20); RED CELL DISTRIBUTION WIDTH 15.2 % (11.5-14.5); WHITE BLOOD COUNT (AUTO) 10.8 K/uL (4.5-11.0)
[2023-07-17] MEDS ORDERED: ARIP400S IM (07:41)
[2023-07-17 07:46] LABS: CALCIUM, TOTAL 9.2 mg/dL (8.8-10.5); CREATININE 1.08 mg/dL (0.60-1.30); POTASSIUM 3.8 mmol/L (3.5-5.1)
[2023-07-17 07:52] LABS: TROPONIN I-HIGH SENSITIVITY Less Than 4 ng/L (<51)
[2023-07-17 08:29] LABS: ALBUMIN 3.6 g/dL (3.4-5.0); BILIRUBIN,TOTAL 0.3 mg/dL (0.1-1.0); TOTAL PROTEIN, SERUM 7.4 g/dL (6.4-8.2)
[2023-07-17] MEDS ORDERED: ACET-3385 PO (08:37)
[2023-07-17 08:45] VITALS: BP 130/76; PULSE 70; RESP 16
== END 2023-07-17 08:46 | disposition home or self-care (01) ==
LOC: EMS 05:36
DX: R07.89 Other chest pain (principal); R05.9 Cough, unspecified; F31.9 Bipolar disorder, unspecified; F20.9 Schizophrenia, unspecified; Z88.0 Allergy status to penicillin; Z88.8 Allergy status to other drugs, medicaments and biological substances; Z20.822 Contact with and (suspected) exposure to COVID-19
CPT/HCPCS: 71045; 80053; 82550; 84484; 84703; 85025; 87804; 93005; 99285; 36415-L1; 36415-TC

== ENCOUNTER 2024-01-24 20:24 | Emergency (ER) | payer MEDICAID, OTHER ==
[~2024-01-24] VITALS: Ht 170.2 cm; Wt 84.1 kg
[~2024-01-24 20:24] MED LIST changes: +ACET-3385 PO; +ARIP400S IM
[2024-01-24 20:37] VITALS: TEMP 98.4
[2024-01-24 22:38] LABS: BASOPHILS % (AUTO) 0.9 % (0.0-2.0); EOSINOPHILS % (AUTO) 4.4 % (1.0-6.0); HEMATOCRIT 35.3 % (36-46); HEMOGLOBIN 11.2 g/dL (12.0-16.0); LYMPHOCYTES # (AUTO) 2.5 K/uL (1.0-4.8); LYMPHOCYTES % (AUTO) 21.5 % (22.0-44.0); MEAN CORPUSCULAR HEMOGLOBIN 26.6 pg (26.0-34.0); MEAN CORPUSCULAR HGB CONC 31.8 G/dL (31.0-37.0); MEAN CORPUSCULAR VOLUME 84 fL (80-100); MONOCYTES # (AUTO) 0.8 K/uL (0.1-1.0); MONOCYTES % (AUTO) 6.9 % (2.0-9.0); NEUTROPHILS # (AUTO) 7.8 K/uL (1.8-7.7); NEUTROPHILS % (AUTO) 66.3 % (40.0-70.0); PLATELET COUNT (AUTO) 332 K/uL (150-450); RED BLOOD CELL COUNT(AUTO) 4.22 MIL/uL (4.00-5.20); RED CELL DISTRIBUTION WIDTH 15.9 % (11.5-14.5); WHITE BLOOD COUNT (AUTO) 11.8 K/uL (4.5-11.0)
[2024-01-24 22:51] LABS: CALCIUM, TOTAL 9.6 mg/dL (8.8-10.5); CREATININE 1.23 mg/dL (0.60-1.30); POTASSIUM 3.7 mmol/L (3.5-5.1)
[2024-01-24 23:03] LABS: TROPONIN I-HIGH SENSITIVITY Less Than 4 ng/L (<51)
[2024-01-24 23:25] LABS: APPEARANCE,URINE CLEAR (CLEAR); BILIRUBIN,URINE NEGATIVE (NEGATIVE); COLOR,URINE COLORLESS (YELLOW); GLUCOSE, URINE (UA) NEGATIVE (NEGATIVE); KETONES,URINE NEGATIVE (NEGATIVE); LEUKOCYTE ESTERASE ,URINE NEGATIVE (NEGATIVE); NITRATE,URINE NEGATIVE (NEGATIVE); OCCULT BLOOD,URINE NEGATIVE (NEGATIVE); PH,URINE 6.5 (5.0-8.0); PROTEIN,URINE NEGATIVE (NEGATIVE); SPECIFIC GRAVITIY, URINE 1.009 (1.003-1.030); UROBILINOGEN,URINE <=1.0 mg/dL (<=1.0)
[2024-01-25 00:05] LABS: ALBUMIN 3.4 g/dL (3.4-5.0); BILIRUBIN,TOTAL 0.5 mg/dL (0.1-1.0); TOTAL PROTEIN, SERUM 7.6 g/dL (6.4-8.2)
[2024-01-25] MEDS: TraMADol HCL 50 MG TABLET PO ONE (01:09)
[2024-01-25 01:15] VITALS: BP 123/71; PULSE 69; RESP 16
== END 2024-01-25 01:18 | disposition home or self-care (01) ==
LOC: EMS 20:24
DX: F41.9 Anxiety disorder, unspecified (principal); R07.89 Other chest pain; F31.9 Bipolar disorder, unspecified; Z88.0 Allergy status to penicillin; Z88.8 Allergy status to other drugs, medicaments and biological substances
CPT/HCPCS: 71045; 80053; 81003; 82550; 83880; 84484; 85025; 93005; 99285; 36415-L1; 36415-TC

== ENCOUNTER 2024-08-10 12:43 | Inpatient (IN) | payer MEDICAID, OTHER ==
[~2024-08-10] VITALS: Ht 170.2 cm; Wt 87.6 kg
[2024-08-10 13:28] LABS: BASOPHILS % (AUTO) 1.4 % (0.0-2.0); EOSINOPHILS % (AUTO) 4.5 % (1.0-6.0); HEMOGLOBIN 11.8 g/dL (12.0-16.0); LYMPHOCYTES # (AUTO) 2.2 K/uL (1.0-4.8); LYMPHOCYTES % (AUTO) 26.4 % (22.0-44.0); MEAN CORPUSCULAR HEMOGLOBIN 26.3 pg (26.0-34.0); MEAN CORPUSCULAR HGB CONC 31.9 G/dL (31.0-37.0); MEAN CORPUSCULAR VOLUME 83 fL (80-100); MONOCYTES # (AUTO) 0.6 K/uL (0.1-1.0); MONOCYTES % (AUTO) 7.5 % (2.0-9.0); NEUTROPHILS % (AUTO) 60.2 % (40.0-70.0); PLATELET COUNT (AUTO) 393 K/uL (150-450); RED BLOOD CELL COUNT(AUTO) 4.48 MIL/uL (4.00-5.20); RED CELL DISTRIBUTION WIDTH 14.6 % (11.5-14.5); WHITE BLOOD COUNT (AUTO) 8.4 K/uL (4.5-11.0)
[2024-08-10 13:37] LABS: ANION GAP 9 mmol/L (8-16); CALCIUM, TOTAL 9.5 mg/dL (8.8-10.5); CARBON DIOXIDE 26 mmol/L (22-29); CHLORIDE 106 mmol/L (98-107); CREATININE 1.25 mg/dL (0.60-1.30); GLOMERULAR FILTR. RATE CALC 49 mL/min (>60); GLUCOSE,RANDOM 101 mg/dL (70-110); POTASSIUM 4.3 mmol/L (3.5-5.1); SODIUM SERUM 141 mmol/L (136-145); UREA NITROGEN, BLOOD 15 mg/dL (7-18)
[2024-08-10] MEDS ORDERED: HALOPERIDOL 5 MG TABLET PO PRN (13:45)
[2024-08-10 13:48] LABS: HCG,QUANTITATIVE < 1 mIU/mL (0-6)
[2024-08-10 13:56] LABS: ALCOHOL, BLOOD (SERUM) < 3 mg/dL (0-10)
[2024-08-10 15:09] LABS: COVID AG,FIA SOURCE NASAL SWAB
[2024-08-10 15:31] LABS: SARS-COV2 (COVID) ANTIGEN,FIA Negative (Negative)
[2024-08-10 16:04] LABS: APPEARANCE,URINE CLEAR (CLEAR); BILIRUBIN,URINE NEGATIVE (NEGATIVE); COLOR,URINE COLORLESS (YELLOW); GLUCOSE, URINE (UA) NEGATIVE (NEGATIVE); KETONES,URINE NEGATIVE (NEGATIVE); LEUKOCYTE ESTERASE ,URINE TRACE (NEGATIVE); NITRATE,URINE NEGATIVE (NEGATIVE); OCCULT BLOOD,URINE NEGATIVE (NEGATIVE); PH,URINE 5.5 (5.0-8.0); PH,URINE DRUG SCREEN 5.5 (5.0-8.0); PROTEIN,URINE NEGATIVE (NEGATIVE); SPECIFIC GRAVITIY, URINE 1.009 (1.003-1.030); UROBILINOGEN,URINE <=1.0 mg/dL (<=1.0)
[2024-08-10 16:17] LABS: AMPHET/METH SCREEN,URINE NEGATIVE (NEGATIVE); BARBITURATE SCREEN, URINE NEGATIVE (NEGATIVE); BENZODIAZEPINES SCREEN,URINE NEGATIVE (NEGATIVE); CANNABINOID SCREEN,URINE NEGATIVE (NEGATIVE); COCAINE SCREEN,URINE NEGATIVE (NEGATIVE); METHADONE SCREEN, URINE NEGATIVE (NEGATIVE); OPIATE SCREEN,URINE NEGATIVE (NEGATIVE); PHENCYCLIDINE SCREEN,URINE NEGATIVE (NEGATIVE)
[2024-08-10 16:18] LABS: ALCOHOL, URINE DRUG SCREEN NEGATIVE (NEGATIVE)
[2024-08-10 16:30] LABS: RBC,URINE None Seen /HPF (0-2)
[2024-08-10 16:31] LABS: BACTERIA,URINE None Seen /HPF (None Seen); SQUAMOUS EPITHELIAL CELL,UR Rare /LPF (None Seen); WBC,URINE 0-2 /HPF (0-5)
[2024-08-10 20:43] VITALS: O2SAT 100
[2024-08-10 23:28] VITALS: BP 136/88; PULSE 86; RESP 18; TEMP 98.1; O2SAT 99
[2024-08-11] MEDS ORDERED: PETROLATUM,WHITE 28 GM JELLY TP PRN (07:30)
[2024-08-11] MEDS ORDERED: ALBUTEROL SULFATE HFA 90 MCG/PUFF 8 GM INHALER IH PRN (07:30)
[2024-08-11] MEDS ORDERED: DOCUSATE SODIUM 100 MG CAPSULE PO PRN (07:30)
[2024-08-11] MEDS ORDERED: CloNIDine HCL 0.1 MG TABLET PO PRN (07:30)
[2024-08-11] MEDS ORDERED: OMEPRAZOLE 20 MG CAPSULE PO PRN (07:30)
[2024-08-11] MEDS ORDERED: BACITRACIN 28 GM OINTMENT TP PRN (07:30)
[2024-08-11] MEDS ORDERED: MAG HYDROX/ALUMINUM HYD/SIMETH ES 30 ML SUSPENSION UDCUP PO PRN (07:30)
[2024-08-11] MEDS ORDERED: BENZOCAINE/MENTHOL LOZENGE PO PRN (07:30)
[2024-08-11] MEDS ORDERED: IBUPROFEN 600 MG TABLET PO PRN (07:30)
[2024-08-11 08:51] LABS: LITHIUM 0.37 mmol/L (0.60-1.20)
[2024-08-11 08:58] LABS: HEMOGLOBIN A1C 5.4 % (3.8-5.6)
[2024-08-11] MEDS: PROPRANOLOL HCL 20 MG TABLET PO SCH (09:00)
[2024-08-11 09:03] LABS: CHOL/HDL RATIO 4.8 (3.9-5.7)
[2024-08-11 09:04] VITALS: BP 133/86; PULSE 93; RESP 18; TEMP 97.2; O2SAT 98
[2024-08-11] MEDS: LORazepam 2 MG TABLET PO PRN (18:43)
[2024-08-11 20:13] VITALS: BP 119/73; PULSE 87; RESP 16; TEMP 96.9; O2SAT 98
[2024-08-11] MEDS: LITHIUM CARBONATE 600 MG CAPSULE PO SCH (20:37)
[2024-08-12] MEDS: ONDANSETRON 4 MG TABLET PO PRN (07:30)
[2024-08-12 08:27] VITALS: BP 126/76; PULSE 83; RESP 17; TEMP 97.4; O2SAT 100
[2024-08-12 16:05] VITALS: BP 133/87; PULSE 93; RESP 18; TEMP 97.2; O2SAT 100
[2024-08-12] MEDS: ACETAMINOPHEN 325 MG TABLET PO PRN (16:06)
[2024-08-12 17:05] VITALS: RESP 17
[2024-08-12 20:15] VITALS: BP 111/75; PULSE 76; RESP 18; TEMP 97.4; O2SAT 98
[2024-08-13 08:36] VITALS: BP 127/79; PULSE 81; RESP 18; TEMP 96.2; O2SAT 98
[2024-08-13 12:39] VITALS: BP 132/77; PULSE 75; RESP 17
[2024-08-13 16:00] VITALS: BP 107/66; PULSE 67; RESP 16; TEMP 97.7; O2SAT 99
[2024-08-13] MEDS: ZOLPIDEM TARTRATE 10 MG TABLET PO PRN (21:01)
[2024-08-13 21:38] VITALS: BP 132/78; PULSE 77; RESP 16; TEMP 97.2; O2SAT 98
[2024-08-14 08:23] VITALS: BP 137/89; PULSE 92; RESP 16; TEMP 97.9; O2SAT 98
[2024-08-14 20:35] VITALS: BP 128/82; RESP 18; TEMP 98.8; O2SAT 98
[2024-08-15 08:30] VITALS: BP 128/74; PULSE 85; RESP 16; TEMP 97.6; O2SAT 98
[2024-08-15] MEDS: MAGNESIUM HYDROXIDE SUSPENSION 30 ML UDCUP PO PRN (09:14)
[2024-08-15 20:21] VITALS: BP 122/77; PULSE 83; RESP 18; TEMP 98.4; O2SAT 98
[2024-08-16 08:15] VITALS: BP 119/78; PULSE 89; RESP 16; TEMP 97.9; O2SAT 98
[2024-08-16] MEDS: LOPERAMIDE HCL 2 MG CAPSULE PO PRN (08:49)
[2024-08-16 20:12] VITALS: BP 123/72; PULSE 85; RESP 18; TEMP 97.8; O2SAT 98
[2024-08-17 08:39] VITALS: BP 110/77; PULSE 95; RESP 16; TEMP 98; O2SAT 98
[2024-08-17 12:11] VITALS: BP 135/86; PULSE 78; RESP 16; TEMP 98; O2SAT 100
[2024-08-17 20:17] VITALS: BP 128/84; PULSE 79; RESP 16; TEMP 98.8; O2SAT 97
[2024-08-18 08:38] VITALS: BP 128/84; PULSE 88; RESP 16; TEMP 98; O2SAT 98
[2024-08-18 20:25] VITALS: BP 134/82; PULSE 75; RESP 16; TEMP 98; O2SAT 98
[2024-08-19 08:54] VITALS: BP 139/83; PULSE 99; RESP 17; TEMP 98.1; O2SAT 97
== END 2024-08-19 12:50 | disposition home or self-care (01) | DRG 750 ==
LOC: EMS 12:43 → B3A 18:07 → B2X 08-17 09:49 → B2S 08-17 13:01
PROVIDERS: ADMIT Psychiatry & Neurology Psychiatry; ATTEND Psychiatry & Neurology Psychiatry
DX: F25.0 Schizoaffective disorder, bipolar type (principal); R45.851 Suicidal ideations; E78.5 Hyperlipidemia, unspecified; F41.9 Anxiety disorder, unspecified; Z20.822 Contact with and (suspected) exposure to COVID-19; G47.00 Insomnia, unspecified; I10 Essential (primary) hypertension; K59.00 Constipation, unspecified; M54.50 Low back pain, unspecified; F43.10 Post-traumatic stress disorder, unspecified; Z88.0 Allergy status to penicillin; Z88.8 Allergy status to other drugs, medicaments and biological substances
CPT/HCPCS: 80048; 80061; 80178; 80307; 81001; 83036; 84702; 85025; 99285; G0480; Q0162

== ENCOUNTER 2024-10-06 12:14 | Emergency (ER) | payer MEDICAID, OTHER ==
[~2024-10-06] VITALS: Ht 170.2 cm; Wt 88.6 kg
[~2024-10-06 12:14] MED LIST changes: -ACET-3385 PO; -ARIP400S IM; -PROP20TA96 PO
[2024-10-06] MEDS ORDERED: PROP60CA31 PO (12:23)
[2024-10-06] MEDS ORDERED: ARIP300S IM (12:23)
[2024-10-06] MEDS ORDERED: LITH600C PO (12:23)
[2024-10-06] MEDS ORDERED: OMEP40CA21 PO (12:23)
[2024-10-06] MEDS ORDERED: ARIP10TA38 PO (12:23)
[2024-10-06 13:08] LABS: APPEARANCE,URINE CLEAR (CLEAR); BILIRUBIN,URINE NEGATIVE (NEGATIVE); COLOR,URINE LIGHT BROWN (YELLOW); GLUCOSE, URINE (UA) NEGATIVE (NEGATIVE); KETONES,URINE NEGATIVE (NEGATIVE); LEUKOCYTE ESTERASE ,URINE SMALL (NEGATIVE); NITRATE,URINE NEGATIVE (NEGATIVE); OCCULT BLOOD,URINE LARGE (NEGATIVE); PROTEIN,URINE 30-70 mg/dL (NEGATIVE); SPECIFIC GRAVITIY, URINE 1.006 (1.003-1.030); UROBILINOGEN,URINE <=1.0 mg/dL (<=1.0)
[2024-10-06 13:23] LABS: RBC,URINE >100 /HPF (0-2); WBC,URINE 0-2 /HPF (0-5)
[2024-10-06 13:24] LABS: BACTERIA,URINE None Seen /HPF (None Seen); SQUAMOUS EPITHELIAL CELL,UR Few /LPF (None Seen)
[2024-10-06 21:35] VITALS: BP 127/70; PULSE 79; RESP 18; TEMP 97.8; O2SAT 100
== END 2024-10-06 22:19 | disposition home or self-care (01) ==
LOC: EMS 12:20
DX: T83.9XXA Unspecified complication of genitourinary prosthetic device, implant and graft, initial encounter (principal); F20.9 Schizophrenia, unspecified; Z88.0 Allergy status to penicillin; Z88.8 Allergy status to other drugs, medicaments and biological substances; Z79.899 Other long term (current) drug therapy
CPT/HCPCS: 76856; 81001; 99285; Z7502